=== PATIENT | male | born 1970 | race African-American/Black ===

== ENCOUNTER 2022-03-29 14:25 | Emergency (ER) | payer SELFPAY ==
[2022-03-29 14:40] VITALS: BP 153/92; PULSE 76; RESP 16; TEMP 36.7; O2SAT 99
--- NOTE | 2022-03-29 15:16 | ED.WOUNDLAC ---
HPI - Wound/Laceration General Chief Complaint: Wound/Laceration Stated Complaint: left 2nd finger cut Time Seen by Provider: 03/29/22 15:16 Source: patient Mode of arrival: ambulatory Limitations: no limitations History of Present Illness HPI narrative: 51 yo M presents with avulsion/laceration to L index finger. Yesterday was using rope to lower a piece of furniture and the rope slipped and caused injury to finger. ROM intact. pt cleaned wound yesterday. Arrived with scabbing, dried blood, swelling. ROM and distal NV intact. All systems reviewed and negative excpet as noted above. Related Data Allergies Allergy/AdvReac Type Severity Reaction Status Date / Time No Known Allergies Allergy Verified 03/29/22 14:51 Review of Systems Review of Systems: CONSTITUTIONAL: Denies fever, chills, or sweats. EYES: Denies visual changes, redness, or discharge. ENT: Denies rhinorrhea, congestion, sore throat, or otalgia. CARDIOVASCULAR: Denies chest pain, palpitations, or edema. RESPIRATORY: Denies cough or dyspnea. GASTROINTESTINAL: Denies abdominal pain, nausea, vomiting, or diarrhea. GENITOURINARY: Denies dysuria or hematuria. SKIN: Denies rash or itching. Reports wound to left index finger. MUSCULOSKELETAL: Denies back pain, joint pain, or myalgia. NEUROLOGIC: Denies headache, numbness, or weakness. PSYCHIATRIC: Denies anxiety or depression. All other systems reviewed are negative, except as documented in HPI. PMFSH Comments At time of signature, agree with nursing past medical, surgical, social and family history. There is no relevant family history pertinent to the presenting complaint. Exam Narrative: GENERAL: This is a well-nourished, well-developed patient, in no apparent distress. HEAD: normocephalic, atraumatic. EYES: PERRL. Sclera clear/white. Vision is grossly intact. EARS: External ears normal NOSE: External nose normal NECK: Neck supple, non-tender without lymphadenopathy, masses or thyromegaly. CARDIOVASCULAR: Regular rate and rhythm without murmurs, gallops, or rubs. RESPIRATORY: Clear to auscultation. Breath sounds equal bilaterally. No wheezes, rales, or rhonchi. SKIN: warm, Dry, delayed with no suspicious lesions or rash, good texture and turgor. Open wound to left index finger. Skin avulsion, tearing laceration to distal aspect of left index finger. Wound is swollen, dried blood. Wound edges are pale and irregular. No active bleeding. NEURO: awake, alert, and oriented to person, place and time. There were no obvious focal neurologic abnormalities. EXTREMITIES: No joint tenderness, effusion, or edema noted. Delayed Course Course Level of Care: Express Care Visit Vital Signs Vital signs: Vital Signs Temperature 36.7 C 03/29/22 14:40 Pulse Rate 76 03/29/22 14:40 Respiratory Rate 16 03/29/22 14:40 Blood Pressure 153/92 H 03/29/22 14:40 Pulse Oximetry 99 03/29/22 14:40 Oxygen Delivery Room Air 03/29/22 14:40 Temperature 36.7 C 03/29/22 14:40 Pulse Rate 76 03/29/22 14:40 Respiratory Rate 16 03/29/22 14:40 Blood Pressure 153/92 H 03/29/22 14:40 Pulse Oximetry 99 03/29/22 14:40 Oxygen Delivery Room Air 03/29/22 14:40 Reviewed MDM - Wound/Laceration MDM Narrative Medical decision making narrative: This wound cannot be repaired with sutures due to avulsion, tearing laceration. Wound edges are pale. There is no active bleeding. Wound will heal by secondary intention. Patient is aware of diagnosis, understands and agrees to treatment plan. Anticipatory guidance given. Patient agrees to follow-up as directed and is aware of reasons to seek care at the emergency department. Portions of this record may have been created with voice recognition software Discharge Plan Discharge Clinical Impression: Avulsion of skin of finger Patient Disposition: Home, Self-Care Condition: Stable Instructions: Antibiotic Form, Skin Avulsion (ED) Additional
== END 2022-03-29 15:37 | disposition home or self-care (01) ==
PROVIDERS: Emergency Provider Nurse Practitioner Family
DX: S61.201A Unspecified open wound of left index finger without damage to nail, initial encounter (principal); X58.XXXA Exposure to other specified factors, initial encounter
CPT/HCPCS: 99213; G0463